=== PATIENT | male | born 1980 | race African-American/Black ===

== ENCOUNTER 2019-05-13 08:40 | Inpatient (IN) | payer MEDICAID ==
[~2019-05-13] VITALS: Ht 172.7 cm; Wt 69.6 kg
[2019-05-13 09:24] LABS: BASOPHILS % 1.1 % (0.0-2.0); EOSINOPHILS % 1.9 % (0.0-5.0); HEMATOCRIT. 43.5 % (42.0-52.0); HEMOGLOBIN. 14.8 g/dL (14.0-18.0); LYMPHOCYTES % 29.6 % (20.0-50.0); MEAN CORPUSCULAR HEMOGLOBIN 30.2 pg (28.0-32.0); MEAN CORPUSCULAR VOLUME 88.5 fL (80.0-94.0); MEAN PLATELET VOLUME 8.3 fl (7.4-10.4); MONOCYTES % 6.8 % (2.0-8.0); NEUTROPHILS % 60.6 % (40.0-76.0); PLATELET 279 x1000/uL (130-400); RED BLOOD CELL COUNT 4.91 mill/uL (4.7-6.1); RED CELL DISTRIBUTION WIDTH 13.4 % (11.6-14.6)
[2019-05-13 09:28] LABS: CHLORIDE 104 mEq/L (98-107)
[2019-05-13] MEDS ORDERED: MORPHINE SULFATE 4 MG/ML CPJ (NOT FOR IM USE) IV ONE (10:15)
[2019-05-13] MEDS ORDERED: ASPIRIN 81MG TABLET PO SCH ×2 (11:30→11:45)
[2019-05-13] MEDS ORDERED: FAMOTIDINE 20MG/2ML VIAL IV SCH (11:30)
[2019-05-13] MEDS ORDERED: ACETAMINOPHEN 325MG TABLET PO PRN ×2 (11:45→12:15)
[2019-05-13] MEDS ORDERED: DIPHENHYDRAMINE 50MG/ML VIAL IV PRN (12:15)
[2019-05-13] MEDS ORDERED: ACETAMINOPHEN 650MG SUPP PR PRN (12:15)
[2019-05-13] MEDS ORDERED: ONDANSETRON HCL 4MG/2ML INJ IV PRN (12:15)
[2019-05-13] MEDS ORDERED: IPRATROPIUM/ALBUTEROL 0.5-3(2.5)MG/3ML NEB INH PRN (12:15)
[2019-05-13] MEDS ORDERED: NA PHOS,M-B/NA PHOS,DI-BA ENEMA 118ML PR PRN (12:15)
[2019-05-13] MEDS ORDERED: DOCUSATE SODIUM 100MG CAPSULE PO PRN (12:15)
[2019-05-13] MEDS ORDERED: MAGNESIUM/ALUMINUM HYDROXIDE/SIMETHICONE 30ML UDC PO PRN (12:15)
[2019-05-13] MEDS ORDERED: LORAZEPAM 0.5MG TABLET PO PRN (12:15)
[2019-05-13] MEDS ORDERED: GUAIFENESIN 200MG/10ML SUGAR FREE UDC PO PRN (12:15)
[2019-05-13] MEDS ORDERED: HYDROCODONE/ACETAMINOPHEN 5/325MG TABLET PO PRN (12:15)
[2019-05-13] MEDS ORDERED: CLONIDINE 0.1MG TABLET PO PRN (12:15)
[2019-05-13] MEDS ORDERED: REGADENOSON 0.4 MG/5 ML IV NR (12:30)
[2019-05-13 15:00] VITALS: BP 101/50
[2019-05-13 16:22] VITALS: BP 105/62
[2019-05-13] MEDS ORDERED: ENOXAPARIN 40MG/0.4ML SYR SUBCUT SCH (17:00)
[2019-05-13 17:39] LABS: CREATINE KINASE 255 IU/L (39-308)
[2019-05-13 17:40] LABS: CREATINE KINASE MB FRACTION 1.5 ng/mL (0.5-3.6)
[2019-05-13 18:38] VITALS: BP 105/62
[2019-05-13] MEDS ORDERED: FAMOTIDINE 20MG TABLET PO SCH (21:00)
[2019-05-13] MEDS ORDERED: METOPROLOL TARTRATE 25MG TABLET PO SCH (21:00)
[2019-05-14] MEDS ORDERED: ASPIRIN 81MG EC TABLET PO SCH (09:00)
== END 2019-05-13 19:16 | disposition home or self-care (01) | DRG 198 ==
LOC: ER 08:40 → 7WST 11:07 → ENRESERV 13:18
PROVIDERS: ADMIT Internal Medicine; ATTEND Internal Medicine
DX: I24.9 Acute ischemic heart disease, unspecified (principal); I51.7 Cardiomegaly; K21.9 Gastro-esophageal reflux disease without esophagitis; Z79.899 Other long term (current) drug therapy
CPT/HCPCS: 36415; 71045; 78452; 80061; 82550; 82553; 83880; 84443; 84484; 93005; 93017; 93970; 96374; 96375; 99285; A9500; J1650; J2270; J2785; J3490

== ENCOUNTER 2019-09-10 11:55 | Emergency (ER) | payer MEDICAID ==
[~2019-09-10] VITALS: Ht 167.6 cm; Wt 69.5 kg
[2019-09-10 12:29] VITALS: BP 123/76
[2019-09-10 15:06] LABS: CLARITY URINE CLEAR (CLEAR); COLOR URINE YELLOW (YELLOW); KETONES URINE NEGATIVE (NEGATIVE); LEUKOCYTE ESTERASE URINE NEGATIVE (NEGATIVE); NITRITE URINE NEGATIVE (NEGATIVE); OCCULT BLOOD URINE NEGATIVE (NEGATIVE); PROTEIN URINE NEGATIVE (NEGATIVE); SPECIFIC GRAVITY URINE 1.009 (1.005-1.030); UROBILINOGEN URINE 0.2 E.U./dL (0.2-1.0)
[2019-09-10 15:36] LABS: EOSINOPHILS % 3.1 % (0.0-5.0); HEMATOCRIT. 49.4 % (42.0-52.0); HEMOGLOBIN. 16.6 g/dL (14.0-18.0); LYMPHOCYTES % 39.5 % (20.0-50.0); MEAN CORPUSCULAR HEMOGLOBIN 29.3 pg (28.0-32.0); MEAN CORPUSCULAR VOLUME 87.1 fL (80.0-94.0); MEAN PLATELET VOLUME 8.2 fl (7.4-10.4); MONOCYTES % 4.9 % (2.0-8.0); NEUTROPHILS % 50.5 % (40.0-76.0); PLATELET 355 x1000/uL (130-400); RED BLOOD CELL COUNT 5.67 mill/uL (4.7-6.1); RED CELL DISTRIBUTION WIDTH 12.8 % (11.6-14.6)
[2019-09-10 15:41] LABS: CHLORIDE 102 mEq/L (98-107)
== END 2019-09-10 16:10 | disposition home or self-care (01) ==
LOC: ER 11:55
DX: R68.83 Chills (without fever) (principal); K21.9 Gastro-esophageal reflux disease without esophagitis
CPT/HCPCS: 36415; 80048; 81003; 99283

== ENCOUNTER 2019-12-29 13:03 | Emergency (ER) | payer MEDICAID ==
[~2019-12-29] VITALS: Ht 172.7 cm; Wt 73.0 kg
[2019-12-29 13:17] VITALS: BP 134/72
== END 2019-12-29 17:20 | disposition home or self-care (01) ==
LOC: ER 13:03
DX: J06.9 Acute upper respiratory infection, unspecified (principal); M60.9 Myositis, unspecified; K21.9 Gastro-esophageal reflux disease without esophagitis
CPT/HCPCS: 71045; 87804; 99284

== ENCOUNTER 2020-10-28 15:09 | Emergency (ER) | payer BC, MEDICAID ==
[~2020-10-28] VITALS: Ht 170.2 cm; Wt 63.5 kg
[2020-10-28 15:32] VITALS: BP 120/76
== END 2020-10-28 16:08 | disposition home or self-care (01) ==
LOC: ER 15:09
DX: Z53.21 Procedure and treatment not carried out due to patient leaving prior to being seen by health care provider (principal)

== ENCOUNTER 2021-05-16 13:37 | Emergency (ER) | payer MEDICAID ==
[~2021-05-16] VITALS: Ht 172.7 cm; Wt 75.0 kg
[2021-05-16] MEDS ORDERED: NITROGLYCERIN 0.4MG TABLET SL SL PRN (14:15)
[2021-05-16] MEDS ORDERED: ASPIRIN 81MG TABLET PO ONE (14:15)
[2021-05-16 14:42] LABS: BASOPHILS % 1.4 % (0.0-2.0); EOSINOPHILS % 7.7 % (0.0-5.0); HEMATOCRIT. 43.3 % (42.0-52.0); HEMOGLOBIN. 15.3 g/dL (14.0-18.0); LYMPHOCYTES % 43.1 % (20.0-50.0); MEAN CORPUSCULAR HEMOGLOBIN 30.6 pg (28.0-32.0); MEAN CORPUSCULAR VOLUME 86.6 fL (80.0-94.0); MEAN PLATELET VOLUME 8.8 fl (7.4-10.4); MONOCYTES % 6.6 % (2.0-8.0); NEUTROPHILS % 41.2 % (40.0-76.0); PLATELET 269 x1000/uL (130-400); RED CELL DISTRIBUTION WIDTH 13.8 % (11.6-14.6)
[2021-05-16 14:48] LABS: CHLORIDE 105 mEq/L (98-107)
[2021-05-16] MEDS ORDERED: ASPI-1497 PO (15:55)
[2021-05-16 18:13] VITALS: BP 124/82
== END 2021-05-16 18:22 | disposition home or self-care (01) ==
LOC: ER 13:37
DX: R07.89 Other chest pain (principal); K21.9 Gastro-esophageal reflux disease without esophagitis
CPT/HCPCS: 36415; 71045; 80053; 83880; 84484; 85025; 85379; 93005; 99285; Z7610

== ENCOUNTER 2022-04-19 14:11 | Emergency (ER) | payer MEDICAID ==
[~2022-04-19] VITALS: Ht 170.2 cm; Wt 75.0 kg
[~2022-04-19 14:11] MED LIST: ASPI-1497 PO
[2022-04-19 14:36] VITALS: BP 136/66
[2022-04-19 15:31] LABS: BASOPHILS % 1.2 % (0.0-2.0); EOSINOPHILS % 1.7 % (0.0-5.0); HEMATOCRIT. 42.9 % (42.0-52.0); HEMOGLOBIN. 14.8 g/dL (14.0-18.0); LYMPHOCYTES % 39.5 % (20.0-50.0); MEAN CORPUSCULAR HEMOGLOBIN 29.9 pg (28.0-32.0); MEAN CORPUSCULAR VOLUME 86.6 fL (80.0-94.0); MEAN PLATELET VOLUME 8.2 fl (7.4-10.4); MONOCYTES % 7.9 % (2.0-8.0); NEUTROPHILS % 49.7 % (40.0-76.0); PLATELET 296 x1000/uL (130-400); RED BLOOD CELL COUNT 4.95 mill/uL (4.7-6.1); RED CELL DISTRIBUTION WIDTH 13.7 % (11.6-14.6)
[2022-04-19 15:38] LABS: CHLORIDE 107 mEq/L (98-107)
[2022-04-19] MEDS ORDERED: KETOROLAC 30MG/ML VIAL IM ONE (18:30)
== END 2022-04-19 19:00 | disposition home or self-care (01) ==
LOC: ER 14:11
DX: R07.89 Other chest pain (principal); R51.9 Headache, unspecified
CPT/HCPCS: 36415; 71045; 80053; 83690; 84484; 85025; 93005; 96372; 99285; J1885